=== PATIENT | female | born 1965 | race Caucasian/White ===

== ENCOUNTER → 2017-02-09 | Outpatient (CLI) | payer OTHER ==
[~2017-02-09] MED LIST: ADVAIR 250-501 EACH INH; ALBUTEROL0.63 MG/3 INH; ALBUTEROL2.5 MG/3 M INH; ALL DAY ALLERGY10 M3 PO; AZITHROMYCIN500 MG PO; BREO ELLIPTA 11 EACH INH; CEFDINIR300 MG PO; CLARITHROMYCIN500 MG PO; CLARITIN 10MG T10 MG PO; CLARITIN10 MG PO; DULERA 100 MCG8.8 GM INH; ENSURE LIQUID237 ML PO; ENSURE PLUS/RESO1 EA PO; ETHAMBUTOL HCL400 MG PO; HABITROL 21 MG P1 EA TD; HUMIBID LA TAB600 MG PO; IBUPROFEN800 MG PO; INCRUSE ELLI62.5 MCG INH; LEVAQUIN500 MG PO; LEVAQUIN750 MG PO; MAPAP500 M1 PO; MUCINEX600 MG PO; NEURONTIN 300300 MG PO; NYSTATIN100000 UNI PO; PREDNISONE10 M1 PO; RANITIDINE HCL300 MG PO; RIFADIN150 MG PO; SPIRIVA18 MCG INH; TESSALON PERLE100 MG PO; TUDORZA PRESS400 MCG INH; VENTOLIN HFA 66.7 GM INH; ZANTAC300 MG PO; ZUBSOLV 5.7-1.1 EACH SL; ZYVOX 600 MG T600 MG PO
== END ==
LOC: HEART 5 14:03
DX: J98.4 Other disorders of lung (principal); R91.8 Other nonspecific abnormal finding of lung field
CPT/HCPCS: 71020-FX

== ENCOUNTER → 2017-02-24 | Outpatient (CLI) | payer OTHER | LOC: HEART 5 15:36 | DX: J44.9 Chronic obstructive pulmonary disease, unspecified (principal) | CPT/HCPCS: 94060; 94729 ==

== ENCOUNTER → 2017-03-03 | Day surgery (SDC) | payer OTHER | END | disposition home or self-care (01) | LOC: OR 06:45 | PROVIDERS: Internal Medicine Pulmonary Disease | PROC: 0B9J8ZX Drainage of Left Lower Lung Lobe, Via Natural or Artificial Opening Endoscopic, Diagnostic (ICD-10-PCS; principal; 2017-03-03 07:30) | DX: J98.4 Other disorders of lung (principal); M50.30 Other cervical disc degeneration, unspecified cervical region; J44.9 Chronic obstructive pulmonary disease, unspecified; M19.90 Unspecified osteoarthritis, unspecified site; G89.29 Other chronic pain; F17.210 Nicotine dependence, cigarettes, uncomplicated; Z98.51 Tubal ligation status; Z88.7 Allergy status to serum and vaccine; Z79.899 Other long term (current) drug therapy | CPT/HCPCS: 87015; 87070; 87102; 87116; 87205; J2250; J7030 ==